=== PATIENT | female | born 1990 | race Caucasian/White ===

== ENCOUNTER 2017-08-02 17:09 | Emergency (ER) | payer OTHER ==
[~2017-08-02] VITALS: Ht 162.6 cm; Wt 60.6 kg
[~2017-08-02 17:09] MED LIST: ALEVE220 M3 PO; APIDRA SOL100 UNIT/1 SC; CLEOCIN300 MG PO; FLINTSTONES CO1 EACH PO; KEFLEX500 MG PO; LANTUS 3 M100 UNITS1 SQ; MYCOSTATIN 100,60 ML PO; Motrin PO; NAPROSYN500 MG PO; NOHOMEMEDS; PHENERGAN12.5 M1 PO; PYRIDIUM200 MG PO; ULTRACET1 TABLET PO; ULTRAM50 MG PO; VALIUM2 MG PO
[2017-08-02 17:40] LABS: HEMATOCRIT 36.6 % (36.0-46.0); MCH 31.7 PG (29.0-34.0); MCHC 35.5 G/DL (30.0-36.0); MCV 89.3 FL (83-99); PLATELET COUNT 233 K/uL (156-360); RBC DIS.WIDTH-CV 11.6 % (11.8-14.6); RBC DIS.WIDTH-SD 37.2 % (39-53); WHITE BLOOD COUNT 9.3 K/uL (4.1-10.2)
[2017-08-02 17:53] LABS: ALBUMIN 4.1 g/dL (3.2-4.8)
[2017-08-02 17:54] LABS: CHLORIDE 101 mEq/L (99-109); POTASSIUM 4.2 mEq/L (3.7-5.4); SODIUM 135 mEq/L (136-147)
[2017-08-02 17:56] LABS: GLUCOSE 86 mg/dL (70-99); TOTAL PROTEIN 6.9 g/dL (6.4-8.3)
[2017-08-02 17:58] LABS: TOTAL BILIRUBIN 0.4 mg/dL (0.0-1.0)
[2017-08-02 17:59] LABS: ALKALINE PHOSPHATASE 59 IU/L (3-129)
[2017-08-02 18:00] LABS: CREATININE 0.7 mg/dL (0.6-1.3); GFR ESTIMATE (CALCULATED) > 59 mL/min/
[2017-08-02 18:01] LABS: AST (GOT) 12 IU/L (2-34); UREA NITROGEN (BUN) 6 mg/dL (9-23)
[2017-08-02 18:02] LABS: ALT (GPT) 8 IU/L (3-49)
[2017-08-02 18:03] LABS: LIPASE 21 U/L (1.0-51.0)
[2017-08-02 18:17] LABS: QUANTITATIVE HCG > 15000.0 MIU/ML
[2017-08-02 19:13] LABS: APPEARANCE SL.HAZY ((CLEAR)); BILIRUBIN NEGATIVE; BLOOD NEGATIVE; COLOR YELLOW ((YELLOW)); GLUCOSE (STRIP) NEGATIVE; KETONES 5; LEUKOCYTES SMALL; NITRITE NEGATIVE; PROTEIN (STRIP) NEGATIVE; SPECIFIC GRAVITY 1.008 (1.000-1.030); UROBILINOGEN 0.2 MG/DL (0.2-1.0)
[2017-08-02] MEDS ORDERED: ZOFRAN4 MG PO (19:50)
[2017-08-02 19:52] LABS: BACTERIA RARE /HPF; EPITHELIAL CELLS 2+ /HPF; MUCUS TRACE /LPF; RED BLOOD CELLS 0-5 /HPF (0-5); UCUL ADDED? NO; WHITE BLOOD CELLS 0-5 /HPF (0-5)
[2017-08-02 20:24] VITALS: BP 100/53
== END 2017-08-02 20:27 | disposition home or self-care (01) ==
LOC: EME 17:09
PROVIDERS: Physician Assistant
DX: O21.9 Vomiting of pregnancy, unspecified (principal); Z3A.09 9 weeks gestation of pregnancy; O99.331 Smoking (tobacco) complicating pregnancy, first trimester; F17.200 Nicotine dependence, unspecified, uncomplicated; Z88.0 Allergy status to penicillin; Z90.49 Acquired absence of other specified parts of digestive tract
CPT/HCPCS: 80053; 81003; 83690; 84702; 85027; 99281; 99285; J2405; J7030